=== PATIENT | male | born 1980 | race Caucasian/White ===

== ENCOUNTER 2023-03-23 15:57 | Emergency (ER) | payer OTHER, SELFPAY ==
[2023-03-23 16:02] VITALS: BP 144/100; PULSE 102; RESP 14; TEMP 37.1; O2SAT 97; BMI 24.3
--- NOTE | 2023-03-23 16:22 | ED.GENADUL1 ---
Documented by User: Marsha Collins 03/23/23 17:58 HPI - General Adult General Chief complaint: Eye Problems Stated complaint: VISION Time Seen by Provider: 03/23/23 16:03 Source: patient Mode of arrival: walk-in History of Present Illness HPI narrative: 42 year old male presents to the ED for blurry vision, increased thirst, frequent urination, increased hunger. Onset was 2 weeks ago. Denies fever, chills, injury, NAQVI, dizziness. Denies CP, SOB, abd pain, N/V/D, dysuria. Reports family hx DM which is his concern today. He does not wear glasses or contacts. Denies pain at this time. Related Data Home Medications Medication Instructions Recorded Confirmed No Known Home Medications 03/23/23 03/23/23 Allergies Allergy/AdvReac Type Severity Reaction Status Date / Time No Known Drug Allergies Allergy Verified 03/23/23 16:08 Review of Systems ROS Constitutional Denies: fever or chills Eyes Reports: blurry vision; Denies: blind spots, light sensitivity, eye discomfort or eye discharge Ears, nose, mouth, and throat Denies: throat pain or neck pain Cardiovascular Denies: chest pain Respiratory Denies: shortness of breath or cough Gastrointestinal Denies: abdominal pain, nausea, vomiting or diarrhea Genitourinary Reports: urinary frequency and urinary urgency; Denies: painful urination or blood in urine Musculoskeletal Denies: back pain Integumentary/Breast Denies: rash Neurological Denies: headache, weakness in extremities or dizziness Endocrine Reports: excessive urination, excessive thirst and fatigue PFSH PFSH Social History Smoking status: Current every day smoker Exam Constitutional Vital Signs, click to edit/add: Last Vital Signs Temp 98.7 F 03/23/23 16:02 Pulse 102 H 03/23/23 16:02 Resp 14 03/23/23 16:02 BP 144/100 H 03/23/23 16:02 Pulse Ox 97 03/23/23 16:02 O2 Del Method Room Air 03/23/23 16:02 Common normals: no apparent distress and oriented x3 General appearance: cooperative; not ill appearing [facility] Common normals: normocephalic Nose: external nose normal Mouth: lip normal Eye Common normals: PERRL, EOMs intact bilaterally, conjunctivae normal, no scleral icterus and normal visual arrington by confrontation General eye: normal appearance of both eyes Neck & C-Spine Common normals: supple Chest Chest: symmetrical chest wall rise Respiratory Common normals: normal respiratory effort Effort & inspection: symmetric chest movement Cardio Common normals: regular rhythm Rate: tachycardic GI Common normals: soft to palpation and non-tender Neuro Common normals: oriented x3, CN's II-XII intact bilaterally, moves all extremities and no focal motor deficits Sensorium/orientation: alert Speech: speech normal Gait (neuro): normal gait Psych Mood and affect: anxious Course Vital Signs Vital signs: Vital Signs Temperature 98.7 F 03/23/23 16:02 Pulse Rate 102 H 03/23/23 16:02 Respiratory Rate 14 03/23/23 16:02 Blood Pressure 144/100 H 03/23/23 16:02 Pulse Oximetry 97 03/23/23 16:02 Oxygen Delivery Method Room Air 03/23/23 16:02 Temperature 98.7 F 03/23/23 16:02 Pulse Rate 102 H 03/23/23 16:02 Respiratory Rate 14 03/23/23 16:02 Blood Pressure 144/100 H 03/23/23 16:02 Pulse Oximetry 97 03/23/23 16:02 Oxygen Delivery Method Room Air 03/23/23 16:02 Medical Decision Making MDM Narrative Medical decision making narrative: The patient presented with blurred vision, increased thirst, increased hunger. Onset was 2 weeks ago. Here his blood sugar was 271. He did report he has not eaten or had anything to drink today, however, he does have a sugar-free Gatorade with him here. Urinalysis showed 40+ ketones and was positive for glucose. CT scan was negative for acute findings. Findings were discussed with the patient. He was encouraged to follow up with a primary care provider and an ripper operator for a recheck, further evaluation and treatment. He was provided with referral information for follow up. Medical Records Medical records reviewed: Yes I reviewed the patient's medical records Lab Data Lab results reviewed: Yes I reviewed the patient's lab results Labs: Lab Results 03/23/23 03/23/23 Range/Units 16:33 16:35 WBC 8.7 (4.0-11.0) 10^3/uL RBC 5.15 (4.70-6.10) 10^6/uL Hgb 15.6 (14.0-18.0) g/dL Hct 44.1 (42.0-54.0) % MCV 85.6 (80.0-94.0) fL MCH 30.3 (25.9-34.0) pg MCHC 35.4 H (29.9-35.2) g/dL RDW 12.8 (11.0-15.0) % Plt Count 255 (150-450) 10^3/uL MPV 10.4 (9.5-13.5) fL Neut % (Auto) 64.9 (43.0-75.0) % Lymph % (Auto) 26.5 (20.5-60.0) % [place] % (Auto) 6.3 (1.7-12.0) % Eos % (Auto) 1.0 (0.9-7.0) % Baso % (Auto) 1.1 (0.2-2.0) % Neut # (Auto) 5.7 (1.4-6.5) 10^3/uL Lymph # (Auto) 2.3 (1.2-3.8) 10^3/uL [place] # (Auto) 0.6 (0.3-0.8) 10^3/uL Eos # (Auto) 0.1 (0.0-0.7) 10^3/uL Baso # (Auto) 0.1 (0.0-0.1) 10^3/uL Abs Immat Gran (auto) 0.02 (0.00-0.03) 10^3/uL Imm/Tot Granulo (auto) 0.2 (0.0-0.5) % Sodium 134 L (136-145) mmol/L Potassium 4.0 (3.5-5.1) mmol/L Chloride 99 (98-107) mmol/L Carbon Dioxide 26.3 (21.0-32.0) mmol/L Anion Gap 12.7 BUN 20.0 H (7.0-18.0) mg/dL Creatinine 0.88 (0.70-1.30) mg/dL Est GFR ( Amer) >60 (>=60) Est GFR (Non-Af Amer) >60 (>=60) BUN/Creatinine Ratio 22.7 Glucose 271 H (74-106) mg/dL Calcium 9.1 (8.5-10.1) mg/dL Total Bilirubin 0.5 (0.2-1.0) mg/dL AST <5 L (15-37) U/L ALT 31 (16-63) U/L Alkaline Phosphatase 95 (46-116) U/L Total Protein 7.6 (6.4-8.2) g/dL Albumin 4.2 (3.4-5.0) g/dL Globulin 3.4 g/dL Albumin/Globulin Ratio 1.2 Lipase 23.0 (16.0-77.0) U/L Urine Color Yellow (YELLOW) Urine Clarity Clear (CLEAR) Urine pH 5.5 (5.0-9.0) Ur Specific [place] >=1.030 A (1.005-1.025) Urine Protein Trace (NEG/TRACE) mg/dL Urine Glucose (UA) 500 A (NEGATIVE) mg/dL Urine Ketones 40 A (NEGATIVE) mg/dL Urine Occult Blood Negative (NEGATIVE) Urine Nitrite Negative (NEGATIVE) Urine Bilirubin Small A (NEGATIVE) Urine Urobilinogen 0.2 (0.2-1.0) EU/dL Ur Leukocyte Esterase Negative (NEGATIVE) Imaging Data CT scan - head: Attestation: I have reviewed the pertinent imaging results. Radiologist's impression: Procedure: CT head/brain wo con EXAMINATION: CT head/brain wo con HISTORY: HAs, blurred vision COMPARISON: None. TECHNIQUE: CT scan of the head was performed without IV contrast. CT dose reduction technique was used, including Automated Exposure Control. FINDINGS: There are no extra-axial fluid collections. There is no mass effect or midline shift. The cerebral ventricles and sulci are normal. The brain demonstrates normal attenuation. Basal cisterns are patent. Bilateral orbits, paranasal sinuses and mastoid air cells are patent. No skull base fracture. CT/CT head/brain wo con IMPRESSION: No acute intracranial process. Brain MRI is recommended if clinically warranted. Electronically authenticated by: JOAN CODY Date: 03/23/2023 17:30 Discharge Plan Discharge Chief Complaint: Eye Problems Clinical Impression: Blurred vision, Acute hyperglycemia Patient Disposition: Home, Self-Care Time of Disposition Decision: 17:52 Prescriptions / Home Meds: No Action No Known Home Medications Instructions: Blurred Vision (ED), Diabetic Hyperglycemia (ED), Mediterranean Diet (DC) Stand Alone Forms: Portal Instructions Referrals: MASOOD HERRERA APRN [Physician] - As soon as possible GODFREY WALTERS [Physician] - As soon as possible GODFREY MILLER [Physician] - As soon as possible Documented by User: Santi Rowell 03/23/23 18:14 HPI - General Adult General Chief complaint: Eye Problems Stated complaint: VISION Time Seen by Provider: 03/23/23 16:03 Related Data Home Medications Medication Instructions Recorded Confirmed No Known Home Medications 03/23/23 03/23/23 Allergies Allergy/AdvReac Type Severity Reaction Status Date / Time No Known Drug Allergies Allergy Verified 03/23/23 16:08 PFSH PFSH Social History Smoking status: Current every day smoker Exam Constitutional Vital Signs, click to edit/add: Last Vital Signs Temp 98.7 F 03/23/23 16:02 Pulse 102 H 03/23/23 16:02 Resp 14 03/23/23 16:02 BP 144/100 H 03/23/23 16:02 Pulse Ox 97 03/23/23 16:02 O2 Del Method Room Air 03/23/23 16:02 Course Vital Signs Vital signs: Vital Signs Temperature 98.7 F 03/23/23 16:02 Pulse Rate 102 H 03/23/23 16:02 Respiratory Rate 14 03/23/23 16:02 Blood Pressure 144/100 H 03/23/23 16:02 Pulse Oximetry 97 03/23/23 16:02 Oxygen Delivery Method Room Air 03/23/23 16:02 Temperature 98.7 F 03/23/23 16:02 Pulse Rate 102 H 03/23/23 16:02 Respiratory Rate 14 03/23/23 16:02 Blood Pressure 144/100 H 03/23/23 16:02 Pulse Oximetry 97 03/23/23 16:02 Oxygen Delivery Method Room Air 03/23/23 16:02 Medical Decision Making MDM Narrative Medical decision making narrative: The patient presented with blurred vision, increased thirst, increased hunger. Onset was 2 weeks ago. Here his blood sugar was 271. He did report he has not eaten or had anything to drink today, however, he does have a sugar-free Gatorade with him here. Urinalysis showed 40+ ketones and was positive for glucose. CT scan was negative for acute findings. Findings were discussed with the patient. He was encouraged to follow up with a primary care provider and an ripper operator for a recheck, further evaluation and treatment. He was provided with referral information for follow up. Attending note - I met and talked with the patient. We discussed his test results. 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 His glucose is elevated in our ED but he needs additional tests and appropriate folow up before being started on diabetic meds. He was given referral info for [facility] in [place] and for two local optometrists. - DO Earl Lab Data Labs: Lab Results 03/23/23 03/23/23 Range/Units 16:33 16:35 WBC 8.7 (4.0-11.0) 10^3/uL RBC 5.15 (4.70-6.10) 10^6/uL Hgb 15.6 (14.0-18.0) g/dL Hct 44.1 (42.0-54.0) % MCV 85.6 (80.0-94.0) fL MCH 30.3 (25.9-34.0) pg MCHC 35.4 H (29.9-35.2) g/dL RDW 12.8 (11.0-15.0) % Plt Count 255 (150-450) 10^3/uL MPV 10.4 (9.5-13.5) fL Neut % (Auto) 64.9 (43.0-75.0) % Lymph % (Auto) 26.5 (20.5-60.0) % [place] % (Auto) 6.3 (1.7-12.0) % Eos % (Auto) 1.0 (0.9-7.0) % Baso % (Auto) 1.1 (0.2-2.0) % Neut # (Auto) 5.7 (1.4-6.5) 10^3/uL Lymph # (Auto) 2.3 (1.2-3.8) 10^3/uL [place] # (Auto) 0.6 (0.3-0.8) 10^3/uL Eos # (Auto) 0.1 (0.0-0.7) 10^3/uL Baso # (Auto) 0.1 (0.0-0.1) 10^3/uL Abs Immat Gran (auto) 0.02 (0.00-0.03) 10^3/uL Imm/Tot Granulo (auto) 0.2 (0.0-0.5) % Sodium 134 L (136-145) mmol/L Potassium 4.0 (3.5-5.1) mmol/L Chloride 99 (98-107) mmol/L Carbon Dioxide 26.3 (21.0-32.0) mmol/L Anion Gap 12.7 BUN 20.0 H (7.0-18.0) mg/dL Creatinine 0.88 (0.70-1.30) mg/dL Est GFR ( Amer) >60 (>=60) Est GFR (Non-Af Amer) >60 (>=60) BUN/Creatinine Ratio 22.7 Glucose 271 H (74-106) mg/dL Calcium 9.1 (8.5-10.1) mg/dL Total Bilirubin 0.5 (0.2-1.0) mg/dL AST <5 L (15-37) U/L ALT 31 (16-63) U/L Alkaline Phosphatase 95 (46-116) U/L Total Protein 7.6 (6.4-8.2) g/dL Albumin 4.2 (3.4-5.0) g/dL Globulin 3.4 g/dL Albumin/Globulin Ratio 1.2 Lipase 23.0 (16.0-77.0) U/L Urine Color Yellow (YELLOW) Urine Clarity Clear (CLEAR) Urine pH 5.5 (5.0-9.0) Ur Specific [place] >=1.030 A (1.005-1.025) Urine Protein Trace (NEG/TRACE) mg/dL Urine Glucose (UA) 500 A (NEGATIVE) mg/dL Urine Ketones 40 A (NEGATIVE) mg/dL Urine Occult Blood Negative (NEGATIVE) Urine Nitrite Negative (NEGATIVE) Urine Bilirubin Small A (NEGATIVE) Urine Urobilinogen 0.2 (0.2-1.0) EU/dL Ur Leukocyte Esterase Negative (NEGATIVE) Discharge Plan Discharge Chief Complaint: Eye Problems Clinical Impression: Blurred vision, Acute hyperglycemia Patient Disposition: Home, Self-Care Time of Disposition Decision: 17:52 Prescriptions / Home Meds: No Action No Known Home Medications Instructions: Blurred Vision (ED), Diabetic Hyperglycemia (ED), Mediterranean Diet (DC) Stand Alone Forms: Portal Instructions Referrals: MASOOD HERRERA APRN [Physician] - As soon as possible GODFREY WALTERS [Physician] - As soon as possible GODFREY MILLER [Physician] - As soon as possible
[2023-03-23 16:41] LABS: Basophils Absolute Auto 0.1 10^3/uL (0.0-0.1); Basophils Percent Auto 1.1 % (0.2-2.0); Eosinophils Absolute Auto 0.1 10^3/uL (0.0-0.7); Hematocrit 44.1 % (42.0-54.0); Hemoglobin 15.6 g/dL (14.0-18.0); Immature Granulocytes Abs Auto 0.02 10^3/uL (0.00-0.03); Immature Granulocytes Pct Auto 0.2 % (0.0-0.5); Lymphocytes Absolute Auto 2.3 10^3/uL (1.2-3.8); Lymphocytes Percent Auto 26.5 % (20.5-60.0); Mean Corpuscular HGB Conc 35.4 g/dL (29.9-35.2); Mean Corpuscular Hemoglobin 30.3 pg (25.9-34.0); Mean Corpuscular Volume 85.6 fL (80.0-94.0); Mean Platelet Volume 10.4 fL (9.5-13.5); Monocytes Absolute Auto 0.6 10^3/uL (0.3-0.8); Monocytes Percent Auto 6.3 % (1.7-12.0); Neutrophils Absolute Auto 5.7 10^3/uL (1.4-6.5); Neutrophils Percent Auto 64.9 % (43.0-75.0); Platelet Count 255 10^3/uL (150-450); Red Blood Count 5.15 10^6/uL (4.70-6.10); Red Cell Distribution Width 12.8 % (11.0-15.0); White Blood Count 8.7 10^3/uL (4.0-11.0)
[2023-03-23 16:43] LABS: Bilirubin Urine SMALL (NEGATIVE); Blood Urine NEGATIVE (NEGATIVE); Clarity Urine CLEAR (CLEAR); Color Urine YELLOW (YELLOW); Glucose Urine UA 500 mg/dL (NEGATIVE); Ketones Urine 40 mg/dL (NEGATIVE); Leukocyte Esterase Urine NEGATIVE (NEGATIVE); Nitrite Urine NEGATIVE (NEGATIVE); Protein Urine TRACE mg/dL (NEG/TRACE); Specific Gravity Urine >=1.030 (1.005-1.025); Urine Microscopic Indicated NO; Urobilinogen Urine 0.2 EU/dL (0.2-1.0); pH Urine 5.5 (5.0-9.0)
--- NOTE | 2023-03-23 16:43 | CT_ITS ---
The [address] [address] Patient Name: ZHANG MEHTA MRN: [id number] date: 1980 Sex: M Assigned Patient Location: ER Current Patient Location: ER Accession/Order Number: [id number] Exam Date: 03/23/2023 17:04 Report Date: 03/23/2023 17:30 At the request of: JENNIFER WILKINS Procedure: CT head/brain wo con EXAMINATION: CT head/brain wo con HISTORY: HAs, blurred vision COMPARISON: None. TECHNIQUE: CT scan of the head was performed without IV contrast. CT dose reduction technique was used, including Automated Exposure Control. FINDINGS: There are no extra-axial fluid collections. There is no mass effect or midline shift. The cerebral ventricles and sulci are normal. The brain demonstrates normal attenuation. Basal cisterns are patent. Bilateral orbits, paranasal sinuses and mastoid air cells are patent. No skull base fracture. CT/CT head/brain wo con IMPRESSION: No acute intracranial process. Brain MRI is recommended if clinically warranted. Electronically authenticated by: JOAN CODY Date: 03/23/2023 17:30
[2023-03-23] MEDS: 0.9 % SODIUM CHLORIDE 1,000 ML 1000 ML IV (16:53)
[2023-03-23 16:56] LABS: Alanine Aminotransferase 31 U/L (16-63); Albumin Globulin Ratio 1.2; Albumin Level 4.2 g/dL (3.4-5.0); Alkaline Phosphatase 95 U/L (46-116); Anion Gap 12.7; Aspartate Amino Transferase <5 U/L (15-37); BUN Creatinine Ratio 22.7; Bilirubin Total 0.5 mg/dL (0.2-1.0); Calcium 9.1 mg/dL (8.5-10.1); Carbon Dioxide 26.3 mmol/L (21.0-32.0); Chloride 99 mmol/L (98-107); Estimated GFR (African America >60 (>=60); Estimated GFR (Non-African Ame >60 (>=60); Globulin 3.4 g/dL; Glucose 271 mg/dL (74-106); Sodium 134 mmol/L (136-145); Total Protein 7.6 g/dL (6.4-8.2)
[2023-03-23 18:09] VITALS: BP 148/86; PULSE 86; RESP 16; O2SAT 98
== END 2023-03-23 18:10 | disposition home or self-care (01) ==
PROVIDERS: Nurse Practitioner Family; Emergency Provider Emergency Medicine
DX: R73.9 Hyperglycemia, unspecified (principal); H53.8 Other visual disturbances; F17.210 Nicotine dependence, cigarettes, uncomplicated
CPT/HCPCS: 36415; 70450; 80053; 81003; 83690; 85025; 99285

== ENCOUNTER 2023-07-21 19:59 | Emergency (ER) | payer OTHER, SELFPAY ==
--- OUTSIDE RECORDS SUMMARY | 2023-07-21 20:16 | XMS_ITS | CCD ---
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 Name Role Phone MD Deon Robles Attending Unavailable Allergies Allergy Classification Reported Allergen(s) Allergy Type Date of Onset Reaction(s) Facility (1 source) No Known Medication Allergies; Translations: [No Known Medication Allergies] Propensity to adverse reactions (disorder) [facility] Repository Problems Problem Classification Problem Date Documented Da te Episodic/Chronic Other connective tissue disease (1 source) Pain in left arm; Translations: [Pain in left arm] Onset: 02-15-2017 Episodic Pneumonia (1 source) Pneumonia, unspecified organism; Translations: [Pneumonia, unspecified organism] Onset: 02-15-2017 Episodic Results Test Name Value Interpretation Reference Range Facility Coding Summaryon 04-17-2021 Coding Summary HTMLBase 64 VibzsfbjEEe4pSh+PGhlYWQ+PE1F LAWlL20syINaeI0MF8rQXM1HPDXD AQLTQD0GPT7jmCK0CVsrV2CymhLf YfqpxOJiSY05QAw8EJG7uCmbBVyp zT4wkVRyT5w5LeIkON19aU31LSwd FVHmWfT7NsFlrvtfaQSy W5kdViMznJUjVoi+PHRhYmxlIHdp AMWwDExmZHWvHiKkrHrvIS9uTc3d ZGVyLWNvbGxhcHNlOiBj k7zyRCPrBUjqPN8rtPhiU5RgmKC6 MSLqq1q2Qc53yXO+HDWxMYL8lRdo ZGpot348RlJhb0uvDUT2 eLLlMQmuOTM4M54bi8I6XOVfKPKe SNA8gCN2rS7bkUvctckkI0HlnDTn UxF1NZK0ySXxvX5tqFbg jygcaH2lQcp+H44UZL5FQQFAVW3C Rlx2X8OkWmdfpRU+PN72FHItGV23 zQGtqBFzd9srbEi5UbUl KTZuRBC5wKxtSFjwe1BoUMCeG42p kKUsn8L9XAUiwPvbbABiKqJqjRA0 mT2gNGxujjxuy9awvvky Fzsbb4tizi27vU56Z33vIPjpUJAy PXY0HUBbGFYxtQjmfp4ryI3gCo6+ KBzmz6pup6lbmQc3HuCl XTElleGdkEwtMEP4t4IyFk54D8Df jWdzb5MdPld3dm45aZNxq1M8xKW0 LUixZKYamL5yFKvjSjV2 CLYkNqHotM25dWCuFYrfEe9nwWez vXtqGT7sXPNspgfuESSduN0fDDYt fMEizNymVL9nUPRozvol z925YwKaHHL7UNNntCSzN5XpqJ7j ZvXbRVQvWIEkR3HwbNZgWBcxG647 MQcuPdZ1NCHitjKyT6Xt WYIwhDvmUvR5n1F5Hv8Hw0Ldzdib PNW6PPmnKYSoDbL9ZtGtFbV2L6Fb Frc6UIXyqGtcMJ9vV2Gx CSOlfqfxrxigpAD5XAPcVPJheN79 yNGeLSqtVj9ce5X8g928POLdWMKz uY65Po7saOoaAPEtnFSP yR3fuzdma8bbaqrqXeHtEZVaDDi8 NFd4XBBpyYvjXgGaLBT8PeZ0GZS5 vWSwpS3wdFnnnaywvF3v Oyc+D84gcD7eTCG2CWA8dlkpYCOw tmAxDI05WT05V4TpXrvnmTUgvJO+ QGJmjuYirHdhAE8kSrIr r6jnx2VcTIfrE3RmZDOfGShaLao6 VBYpWFU5hCP1hJ9wBKXlFRimk8G4 yKL3X7LmgyOibk3pv8jw SJRxAOiqE84inJFfz8X5EZJnsQS6 VNEadFqjUzPniP13Prz+PGNvbGdy i9EcRhlci5tij1vdeUg6 VfQbUQMuzuAxuZuuXNV2l4OmQm51 U53tZCefOHWmOWDiKWGyFZZzfReh ns4ryH6mJj3+PGNvbCB3 lQL1xD2bWMTwCnY4ETivT273ItAu aMOdDyiow4nja5tgoZc7WrKnFVVn siGwdAjrNUO3d6NyMg88 M26cQDmlDJYpUURiDAFsQBRfcQzx ln2fkG3iHj5+IL1bo2scqv20zH48 dHI+CQQoXJO5uPfkMScx POPelY5gKPhjZzR1TUIgYcKxdM34 cYObSQusWq7exSmvcOomFM4oJNCp tqoux105YfNvb2cxBHAg cXRkDCowWKH4B65tm9Z2BTQbGQDk GLF3rDR8iW2vfOcprroghHHenOog duXcjNqvCCmdSLllY244 IHRvcDsnPlBhdGllbnQgTmFtZTo8 Z0SiDmq0DSRkqStvPV9pmDShFUzt Jo3hcRclqEpfDZ8wULHx hfnlg257ZlBhr4uzEVLbxDFuCLub MRR2D49ll2I8QWPlRCDuVFS0aPS2 sZ0oxBxivozxxFNfuUro ocYhiSwdHMhwGTeaE732XTJimRuw BtAodfHiGBLdbLU4EN76TB51mFKi u8K1rMI1F1YbWQAblvqp jfskgSX5LSJrIQAieE98Qd0wmWid Yp5eULQxNUJ1RSOaoCRxL6PpuU4t FyZwNLVsCVRnG5VdoEGe RNtvV360FQloQtZ5QNAklpJhA1Ux UAKmfYkuUwI5w5J6Sa7EX9O9OR27 KG77vMZfn6J1nSE2N0Fo BZHymefxjypqdRR1PJDkWHNfdI40 Eo5mxZsfMb2iRSDgPFE7ZOGnfOXj O8IwgL3iXpKiSANhDELk G7AlnEVyZWwrG249AMrjHlH6QOZz dbVfJ5FdCPQvmMkjBrI7b5L2Vs7J CEg1MB46VU87iBJzh6N2 mFQ3M0WmQUYggtkqotucsPO0VAEv ZCMrpU25Ze9vuIttLe8jVDVaTKW9 DQFioVUbO8TuoZ5jSzOt NUFwRANoS7ZghHAdCPltM551MXwg JiV4PQFikeMjM6MfIHXspZqwFwO8 l2L3Av1YLWFaMA35RPO3 nDH5FY51UD30P2VwYmdgpKJgmWR+ PHRhYmxlIHdpZHRoPScxMDAlJyBz rLkdWG6iQh2fRSDxNTUx aAkoxCRqXsOaa0bkRQSzGIotXL8w iDylV7FuiPP5WLXrs6r5Ka75I64e O0AtxNK+TCHgaAN2yAK4 rN2bTbWoCvE7OCziJ273ZdPveZIi Exokv8pha0wnvQl1QiO2PQOdabLl dPafSFL2n4OvRk24Y52o AIvuWGZaYVFuVNGrAJZcnYdnur9r oZ5vEz8+LYLhaKH1cEG5xU5qKaSt SzT5QNqzT498IxDmrEMs Mvswe1eyt9yzoYz4HxAuIBWrceAb oNayAUD3v5JoZv94A7BieNxeo2Pk Jlh9bn14dPWnt4D1rMQ2 I0CwSZYdbeciuHXbmJljVH4xIITq uvrzFUHubY9uDYCpN8n5QuCqWcT8 ATupH0GyvhM9RNZwaVIu HAgzVYG3C05fr1S4MVRfVMGcDAW6 nZJ6nC0zlYiusnzwbDUdkWlgikIu fExwKFatRPbmW901NGUa sDhqGPLzlG4bCOVtuXTlvXmpES6i VRStacbeBleZHEhTQceiCxRIEH4Q RDwvdGQ+EHXpCAF2uOzy CLoxBUQxgY1qCBOjH2h4DfPfGyN3 YYvwA5FgARJloxaqOj21vE0wAvPz BoJ2OGhtQ3WfhuE4XSIn rDAqOLpeQIA3T93vr1D7HRYvSKWu HVX6aAQ3sE0pyYpddmagmCAtzPvh xcPuiCobKMaeDNxmR397 UVLluWckYgCbYjChYnG8HVH7P7Es Qam7ABYhcPdyNP6icZIvPBilAx4c xQiupKznPS3aRIBmwxnw QNXfpH9vIEGlcBTgeYcwMH4aDXVt mulxd768PzRbMAI6TBJqtIZmM5Wi eN4mHiAjEFWiIRMfD4Os wMNjIGmxV444ULwuPrQ6OULgdrAj U1XoYXOgjBgrXdD6l9S4Yp5dUXNB ZWFyczwvdGQ+PHRkIHN0 nKanUZskNIJmeU1yDFArM0e9XbBj IiG5HMmqK8HtEANtljseVk44gC1u QtCqDvB2MLrcF7MtzgM1 OZBccBUcUJmsNUV2P31kg8C6NJXv KVZvMUC0bNX3iX7dlJonwxcqsNFi dDsgdmVydGljYWwtYWxp Z190CNKxfSpdDz7YUQK5K8CoKhf8 RIEfxFxqUJ2zcUPzGQtbBq1bqWlk sNvcUS3mCANquhfpUBZe qG1dBAVbcMCisFyaBG3dSORzcjht t570WiDyJWB0SKSmfCNjK4LzvY0z DaTwUKNxNYOhI4EdmUSc OSmcY382UVwwPcZ5RURtoxMyS3Io ABQyuYzaYvE3g5T0Lt2FADwznOG+ JO53qs35O4SdUohqZta0 LVTkXKE6gAE6cL4mJRQiAHgds6J2 bYL1T2GrkaRxue6gv9kjRSZtBDqt G76pdWSqh5B9USKxjLS1 YUNoeEveJkNjjH31Sjr+PGNvbGdy i1OxSwmmy2qeu1tujTs3QkOfUHCk plQzjBdrDXA8i8JeZh31 V12dCYkqQEYhYHZfBHXaEBYqdVpa hq2fcO1xBi2+QKBvuGS0xZF0pF9r VpXlIvP3NLckI868UlNf sYVcWwnfe1jhp3uqbEe8StPjNTLs qhEleOvdOUS3g0LsUo41G2UjpZwy j8VeDuc0zg41rBFzj5Y7 wVL9W5ZiMHQmzqmijAThhExwVL9d MDBbwdruKTBayC7hLXXqY9h8TxIc QvN3FNvkP6GodvI8PMNe uNAmAPJwvPDDaF7vaskqp9vxmqgw YnUyOGLrLGa5GUh0PGGugTzsJbKi GRX1XhM7OKN1nUFaiB0e sKlpbjjtqR1pZbj+MMd2o2dpjXOe TQ9qrJO3FI28TZ16eAQgg1W6kUR4 C8YdBMNyubojwmuuzEM7 VVSpYFSdyW98Pi6yiYgzSx2qRTGe HZU1DGMgbEIrB9QhkS1iOkOdDPTk GWWyS2YvwFAcQEbfW551 MJnkMnZ6LUOhogQvE6PiODVskApc MwT1l0I8Ta1PYL45XR90RD46ePOv g4M0iRS1W8UoPQXrmzob gjkxdRV3PWHjUFQocW12Uq2rkDlu Fe6fXXLoNHG1FQYqeSBwC3NfxM9w CrWkMZWsXKEaU7EpbYXm WFgkH201NVkfQuU2TQPpfbLcK0Ia QYXjeHlnPkD8u0N1Fm8KYk24DT12 OR55kMGgw3C8iMQ8Z1Zb ONGryduahyotfNZ7RDVsHIAwkT02 Mk1kpHnhVd8lBOAhWDC4JGMifTJg U2RtuB6mWxNnRACzZSGv B9IwjWEhTYnaW106BVvfCjP3XRDr hcTuU6IfLFHmoBmzRvN7m3K3Mx4M UEzyfxz9F0RvQquztKB+ XM90IHNdBF22fFZxuAHgp4jjjPi0 OmRwRFNqCZI3fIkxNWjnd4ViZBFu T38qkEYpp1W3ABKtjDia cHN (more content not included)... [facility] Coding Summary HTMLBase 64 IkxkemtyTOy1tXc+PGhlYWQ+PE1F NSMaY06zqXHpzQ6VH2hDAW4APGGE WVCPWY6LGD1qwXO2SWbxG4RldxPh TfjbmCSaWF90UKo2VZN0jRvxPDdd nA5waHQfZ4j0GuVnUU60sJ65BRtu EQOySmI9UaVhvkwlhJNj X9ymIvQkrWFeUqq+PHRhYmxlIHdp QLYzNZgrSIWoWwAbgBypSN0lFn4t ZGVyLWNvbGxhcHNlOiBj u4ekRDHbTGpsMT6lzBrpU9IzmCM3 IDUpx6a5Gs66fVG+KXHqQLQ4mJii DQhmc544CkXnn5orZCM5 hAXoKYtjRPL0G76dk2X5WIFoFCOu IBZ4kGO3yT7maNbbgyygP0GkhNSv SnA4JOZ1mEGslX8mgAee luudyT0pNkf+L40BGN5JWIMJPD9K Nbf7M7QqEtygtCS+ZH78ZIDnCV80 lUQthRZqb1imzFw9DnDb RMGyIAA8zCtrWGymu5BaFPHfB67w mBNfa2H9THSouLmlyYXaDyGrdCT9 jH9tJEeolcntd3dgkscs Ozhfm0zlzu43xX08G29oHMtpIFNu LMW3FGGeMJLtrYzwcg4riR6vDh4+ YThxc6zks2clmYa6ShAd MZPqplZdoYjgYJJ7u9FyUm96E5Zl eKlgk2EcIuo9yb04eCNwf9T0vXB6 DDvdKSJmqW5vZBiiYiY0 AZKwDiUkhB23gMLmRFzlVz6laAcn rRqqPX9lPLPxbbpnKGTtpQ9nXPFh yXFqcZbkHM6pPKFdcuht r841PkYqURQ4OZVrvYVhD4BjxN0p XvVzXKQkDBKrU1NwaEEdZGgxF286 DJxsElK3ALPgjkRyZ3Za YIRxfWczToI6h4B2Xq8Xt7Hnuahd ZEL6FFldZTAuMbR1NkHxBrZ6T9Ch Ngi9SFGdbJylEC4yL2Xr ONKjoedcjzeeyND4UZSbYOQvdI33 nIOqHOrcSq7fh0Z6d922WDBxTZRq qU08Ws0ueJmnJCCxuFPA xI3ztdnoa6innjlfMyNwOVXnXXq1 KBn3DAUstKfkRdCuSAN2ChK5NAP0 xBCifY6qsRmonwsyqD2o Oyc+K14vmQ5rEGH6ZIF1oztwRWNe ykSjTM12HH07H9HbDmhoaVYbcOW+ EZIkioEomArcDQ4oEvFe i4pbx7DgIMbqR0BlMZQzJDnyGlw1 AIQtRDT6wPI8kP7bWTOuLYyco5H3 kMW9L3GipzSpbl4ji0pe RBKgUBddS84qvULct6F1XFYniGA1 TUTqcJxmTuDwzG97Dbg+PGNvbGdy u9DcMrdum9fnl1nizEn9 TlZhIYCpuqMnzOngSFW0j6YmPe35 N08bVXuyOMMrNNHyHKQtKRWhxVea ik6fpC2yVc7+PGNvbCB3 jMT4gA0pWXRlMuB0TUtbZ920VwDx uIVfOexlb3bco6bspGm0TrHmZUUp wzZwmAtjRFC3t9XjKv52 D27vBKljMVJlEZOvOABpOFCvsCrs en1nuR1yEs2+LV0ad9iyst48dX24 dHI+YHSiSAM1lIlpXCxe ARFajN7yZMzdVhT1VERpZfGfaQ79 oKKdMSzzAt1ciDoriNvyEM1sMILt xbxlr399FvGvw4nwALPj fSRzFAsvKNU1T52is1I7FDIgRCLn KNS7gFK0dG7lzAkvghxgiJNvyThs nuGmjYqvGOolULpnW547 IHRvcDsnPlBhdGllbnQgTmFtZTo8 B3KnRpv4ZMJujVcdSM5wbAIdGJmc Ca2ywOsobRhhCN1pQSPd qtqni981PsUei5xyCFXsbXSkLOpe QYM7L14vw7I7HQJaXTSaKGG8fES0 pY5tbIpfqhuisBVreYtj ioWfeCmvGFgjNZyvF739OFInwVrv ZiHzxiFdHQJpaYR3ZY20UJ16jJFg u2S4kMK5N9MiRGKuqype clvhjSV7RNRgZSRyqJ48Nw0xpJiw Lx1sJZUtELZ7ZNCqaYFdX9UhfY7l NxXzUZKjTCOkS4GdhVFa CIcrM982SJcuCcG5WOXrydPeP2Fa PVJsjVgxKlQ4r1H0Oy9SE6W8BL77 YG09zSXug5T9mEA0O2Gl MYWddwneulklsOE3MUEgYKNgaS88 Fy8bnChbWp1fQYSpYKI5TYUomNGw S5WywS9fWkKoYLMaDOGr V4WcfJYfKFnzM903MQyoAiY8KYAm fpJbK8QmTJNnzBwbSaU2q8U4Ls9T UOa0WE92IK99tSCdc7J9 aJT0J2ThRUUldetxdhbwlVU3THMm ESRrxA33Cc4ajYrkRn9sOPEgLAO4 XGTjoXMdC3DuaC6pAcVj JYEiHLUxV0EznGPcGIdqA640SFhx LkT4SHJronAuC4BsQWEenYszWyK8 f5C8Rd1VJHKeOF72LVC6 iTL7ON09NQ13Y6VxZztaiNDsgHC+ PHRhYmxlIHdpZHRoPScxMDAlJyBz nEenOG0vAa0cBRMyJLJc jCaenCWbGoQsr7maYQWeOQjbQY7h eWwjC3GjoZS0XSHpj9a7Oo80X72m K6BzkCC+XDApeOQ7sRC1 oH0lLpLqApP4UUquJ735FxLwsLOf Ugjjp9efq1czmDa4GlD6HEGexkLv uCccOBI1l2YxTl59W76a POziHCKmJUJlGTNaBIGjmVozry2l mV0cSc0+ZQVdrBF5gGM7lV3uStGl RfA0YJejS954OmZcpBRv Etfit2yee1nojXl8JlOeJOWpohTj vPioRZX4j0SnOs65N1ShcWxip5Kb Erj8tt00lFMxl0Z1mYJ0 M7FoLAMtnaxedRXznXyaEO7kQELl rgstBLFlmZ6tNHZeU1l6GeIaZfA9 JAvmG6SlcsX0UINidZPg VNniVDR3O31xu8S5ZWBwXRNxZGJ2 yFN5tJ0xkKpfmdlplTKklNaunuXw nBnlUGuhXZdeJ626EYEp nOofOZVyiF5cZZDwdUQsmOgqXZ8r CAFsuhcjUyfAAUnWAyjkYqTDZM0A RDwvdGQ+ZAKuGWG0fXil GQrtJJUgcY1tRVRdO5x0UpNcKqY1 HLwzC0BwYUXtcpgrWx32pX9sYqXw HdH3ADfoV6HrbbM8FSNd hGVyUPdsSEY9P04lg2V1YSWdYJPx UZO1bWC5hK7rbYudbuiixNEotAdu meYsgZscQYmlYCosE244 BZQheYbnOrSvAyCxPhA1KLV9M5Xp Bjc1IICrgOloUL3yhGAuHLvjWz8e wLxxfYusLF3nYUEgljxj JBPucM0lEPLvlNIprNxsYO0qSQJr uzwgy694TdKdVOX8BTTxxBUuJ8Do sM5tNnGxHELrCCOlP6It mCKnJWmbW329MLvcOrL6VXLgzsGa R6OzZFQhkKjuXtP2k3O9Xv6rPJOC ZWFyczwvdGQ+PHRkIHN0 eDooHOmsESBydW6nAKEfZ1x7UoMl GtQ9AZfoP5BeYHYyjzowXn28sB4p BbUbEoD9GKbfE9FlveD4 KYUtgQXjYFmuPPM4X95pt0V4VNUw FCBiYSJ5pEG7nG6qeIbwzenmoDIn dDsgdmVydGljYWwtYWxp B343HESvyQuiWh6BXVR9F5IrWdr6 MHTsmMjqGW9aeLMvNUqtYm7xqRjl vOfqVH3oBNJihhkpPOTy iV5hTNIiiHOciJbsIK9dOUDlkzst u091RqJyGQK8WZCbkYKmP1ClmL8o JmRlMFOfGRPyM6NeaDSz OZdrE245PQgdOnQ0YITqqdBpQ8Ce MPVsaYyiKzC8o1U8Ip3MeYHeV5Tl D7s5J5CfMobxyLT+PC90 GJVnHB63lQNuqJVpv5qkaBc2MkJq HWFhIKZ2iUyxCQqca3IjDYRuZ85a eUAyh3W9ICAgcLykpMRo QiEjoNC2uO8qGTxsfdfbc4sfhnre Elyvf1aiyp05nB23Q93pKCpkLNCv XAHiFQAfDIIgiHnryf7v hK3tTq1+CWVtfBQ3mYE7jZ5iEiJk RiV3XHqrB414WcNpxTInBqxlq4sn m7rswDh2McFaNADzbvAi rQljFCW1d6HiOh79O85pMFteQIEo QGEjFDPnKRJdbOjvhw4qrB8gKv7+ NK6ha0qzed85cN10uAK+ YEYhCPS7hZitUDihZFTicQ9bVUdx FqW7TMQtPkKhrD53bGNtGPulWg4x vFpzuGcyLC6eWASboymg u844NjWvl7hnFFPtuSImWOmhWOG4 K79ms5Q4NMJgOTHiTMG6uMO6oZ7f bGlnbjogbGVmdDsgdmVy pXhfRZycAGxaP833LYAtySncZcTr eVRtG3vrliEXMP2wZbtysSM+PHRk ECK5lZxsDTvpDXPtuO9p XUDjR1d6WlBrOkF8SOfeQ4ZlzpL6 BMFawMEvEEPsuASBxF0dyclfl2rb ttjbMfEiSWIxPIh5FYy6 VGDxvRnyAnMcAPE5QdV4UVF3dTEm iS1euDnjteijoV3cHfn+RklOOjwv dGQ+CLGpKTI3gHdfYRmh HKYxvB7hYEMmV1t1NqXbBxW3ITuv I9EcxvU5GZDdjLBaPADgwCUNiC6a mhsom3vpibjkLoDiIJXg XHb1TNd7ADKkzFfpChXwFRY7PnD0 NRD0dKEvxH4lwImntraizF9zXlz+ TVJOOjwvdGQ+PHRkIHN0 yBwwYSbbMUUzsV7zNAQcY9v1TfRi FlL9SKmsA3GxejI4ZOUytGXpQKTp lDWBgX6paahuq3wtusba NfKfTDCpOHy9LMm5CCRauKlyPbZn LXI6YzQ9CSQ2bFYmgF8cgVwemyrv xQ2cDvz+OWX6XLR7ZR53 CF69F3PsGacytGCjgPP+PHRhYmxl BEjdKQXuMUqvORInLpWygJeuCP3b Jv6uEPHqMUFyzQldvWZf OiB (more content not included)... Normal [facility] ED Clinical Summaryon 2020 ED Clinical Summary [facility] - Emergency Department [address] [place] [address] ED Clinical Summary PERSON INFORMATION Name: SHAUNNA MEHTA Age: 40 Years Sex: MALE : 1980 MRN: Acct#: Visit Reason: SOB - Shortness of breath; POSS ASTHMA Arrival: 04/08/2021 19:18:48 Discharge: 04/08/2021 20:44:00 LOS: 000 01:26 Check In: 04/08/2021 19:18:48 Checkout:04/08/2021 20:44:00 Address: [address] [place] [id number] PCP: Provider, None PROVIDER INFORMATION Provider Role Assigned Unassigned Amadou RN, Laurie Oviedo ED Nurse 04/08/2021 19:20:41 DONALDO MARTINES ED PA 04/08/2021 19:21:30 VITALS INFORMATION Vital Sign Triage Latest Temperature Tympanic Temperature Temporal Artery Pulse Rate 116 bpm 116 bpm O2 Sat 100 % 100 % Respiratory Rate 18 br/min 18 br/min Blood Pressure /95 mmHg /95 mmHg MEDICAL INFORMATION Medications Given: Medication Dose Route predniSONE 50 mg PO albuterol (albuterol 90 mcg/inh aerosol) 360 mcg INH Allergy Information: No Known Medication Allergies PHYSICIAN DOCUMENTATION Patient: SHAUNNA MEHTA [facility]: [id number] Age: 40 years Sex: MALE : 1980 Associated Diagnoses: Asthma exacerbation; Bronchitis; Elevated blood pressure reading Author: DONALDO MARTINES Basic Information Time seen: Date & time 04/08/2021 19:22:00. History source: Patient, EMS. Arrival mode: Ambulance. History of Present Illness Patient is a 40-year-old male presenting to the emergency department with squad and police for evaluation of asthma. Patient states he has a history of asthma and COPD current smoker. He reports that he was stopped by police communications dispatcher and was placed in handcuffs secondary to work for the rest, states that he was wheezing but did not let him get to his inhaler. They called the squad and EMS gave him a breathing treatment. Patient states that after breathing treatment he is significantly improved. Does state he has a mild cough. Denies any chest pains, shortness of breath, abdominal pains, nausea vomiting, problems with bowels or bladder or fevers. States that he has not been vaccinated against Covid. Review of Systems Constitutional symptoms: No fever, Skin symptoms: No rash, Eye symptoms: Vision unchanged. ENMT symptoms: No sore throat, no nasal congestion. Respiratory symptoms: Cough, wheezing, No shortness of breath, Cardiovascular symptoms: No chest pain, no tachycardia. Gastrointestinal symptoms: No abdominal pain, no nausea, no vomiting. Genitourinary symptoms: No dysuria, Musculoskeletal symptoms: No back pain, Neurologic symptoms: No altered level of consciousness, Health Status Allergies: No active allergies have been recorded.. Past Medical/ Family/ Social History Medical history: No active or resolved past medical history items have been selected or recorded.. Social history: Social & Psychosocial Habits No Data Available . Physical Examination CONST: -Well-developed well-nourished. -Acute distress: No -Vitals: reviewed. SKIN: -Gross abnormalities: No EYES: -EOM intact, SUSIE: -Sclera conjunctiva: Unremarkable. ENT: - Normal pharynx pink and moist. NECK: -Supple ([id number]): non-tender. CARD: -Rate and rhythm: Regular -Edema: No -Calf pain: No RESP: -Respiratory effort and chest excursion with respirations: Normal -Breath sounds equal bilaterally: Clear -Wheezes: No -Rales: No - Speaking in full sentences, oxygen saturation 98% on room air BACK: -Signs of pain with movement: No ABD: -Distended: No -Deep palpation: Non-tender, soft, no guarding or rebound tenderness EXT: Gross appearance and use of all four extremities: Unremarkable NEURO: -Patient: alert -Gross CN or Focal Neuro deficits: No -Oriented to: person, place and time. -Appearance and judgment: appropriate. Medical Decision Making 40-year-old male presenting to the emergency department with squad in police for evaluation of possible asthma exacerbation. Patient received breathing treatment prior to arrival states that he is feeling significantly improved. Indicates that when he was being pulled out of his vehicle he had wheezing but they did not let him use his inhaler in his vehicle. Patient refusing Covid swab. Patient also states he is deathly afraid of needles and does not want blood work. Chest x-ray shows probable bronchitis no focal consolidation. Patient reexamined in the emergency department, heart rate is 88 bpm, oxygen saturation 100% on room air, no wheezes heard on auscultation, patient smiling and laughing speaking in full sentences appears well. Indicated the patient should continue supportive care and discussed supportive care measures with the patient. Patient will be given a prescription for prednisone along with an inhaler. Patient was given inhaler and spacer showed how to properly use this with respiratory therapy. Patient will be released into police custody told to continue with prednisone daily albu (more content not included)... [facility] ED Note - Physicianon 2020 ED Note - Physician Patient: SHAUNNA MEHTA Age: 40 years Sex: MALE : 1980 Associated Diagnoses: Asthma exacerbation; Bronchitis; Elevated blood pressure reading Author: DONALDO MARTINES Basic Information Time seen: Date & time 04/08/2021 19:22:00. History source: Patient, EMS. Arrival mode: Ambulance. History of Present Illness Patient is a 40-year-old male presenting to the emergency department with squad and police for evaluation of asthma. Patient states he has a history of asthma and COPD current smoker. He reports that he was stopped by police communications dispatcher and was placed in handcuffs secondary to work for the rest, states that he was wheezing but did not let him get to his inhaler. They called the squad and EMS gave him a breathing treatment. Patient states that after breathing treatment he is significantly improved. Does state he has a mild cough. Denies any chest pains, shortness of breath, abdominal pains, nausea vomiting, problems with bowels or bladder or fevers. States that he has not been vaccinated against Covid. Review of Systems Constitutional symptoms: No fever, Skin symptoms: No rash, Eye symptoms: Vision unchanged. ENMT symptoms: No sore throat, no nasal congestion. Respiratory symptoms: Cough, wheezing, No shortness of breath, Cardiovascular symptoms: No chest pain, no tachycardia. Gastrointestinal symptoms: No abdominal pain, no nausea, no vomiting. Genitourinary symptoms: No dysuria, Musculoskeletal symptoms: No back pain, Neurologic symptoms: No altered level of consciousness, Health Status Allergies: No active allergies have been recorded.. Past Medical/ Family/ Social History Medical history: No active or resolved past medical history items have been selected or recorded.. Social history: Social & Psychosocial Habits No Data Available . Physical Examination CONST: -Well-developed well-nourished. -Acute distress: No -Vitals: reviewed. SKIN: -Gross abnormalities: No EYES: -EOM intact, SUSIE: -Sclera conjunctiva: Unremarkable. ENT: - Normal pharynx pink and moist. NECK: -Supple ([id number]): non-tender. CARD: -Rate and rhythm: Regular -Edema: No -Calf pain: No RESP: -Respiratory effort and chest excursion with respirations: Normal -Breath sounds equal bilaterally: Clear -Wheezes: No -Rales: No - Speaking in full sentences, oxygen saturation 98% on room air BACK: -Signs of pain with movement: No ABD: -Distended: No -Deep palpation: Non-tender, soft, no guarding or rebound tenderness EXT: Gross appearance and use of all four extremities: Unremarkable NEURO: -Patient: alert -Gross CN or Focal Neuro deficits: No -Oriented to: person, place and time. -Appearance and judgment: appropriate. Medical Decision Making 40-year-old male presenting to the emergency department with squad in police for evaluation of possible asthma exacerbation. Patient received breathing treatment prior to arrival states that he is feeling significantly improved. Indicates that when he was being pulled out of his vehicle he had wheezing but they did not let him use his inhaler in his vehicle. Patient refusing Covid swab. Patient also states he is deathly afraid of needles and does not want blood work. Chest x-ray shows probable bronchitis no focal consolidation. Patient reexamined in the emergency department, heart rate is 88 bpm, oxygen saturation 100% on room air, no wheezes heard on auscultation, patient smiling and laughing speaking in full sentences appears well. Indicated the patient should continue supportive care and discussed supportive care measures with the patient. Patient will be given a prescription for prednisone along with an inhaler. Patient was given inhaler and spacer showed how to properly use this with respiratory therapy. Patient will be released into police custody told to continue with prednisone daily albuterol inhaler 1 to 2 puffs every 6 hours as needed. Reexamination/ Reevaluation Heart rate on reexamination is 88 bpm. Impression and Plan Diagnosis Asthma exacerbation ([id number] J45.901, Discharge, Medical) Bronchitis ([id number] J40, Discharge, Medical) Elevated blood pressure reading (ZGT12-DW R03.0, Discharge, Medical) Plan Condition: Stable. Disposition: Discharged: Time 04/08/2021 20:28:00, to police. Prescriptions: Launch prescriptions Laboratory: Respiratory Panel 2.1 w COVID-19 ([employer]) (Order): Nasopharyngeal Swab, 04/08/2021 19:22 EST, Stat collect, Nurse collect, No, Yes, 04/07/2021, No, No, No, Not Pharmacy: albuterol 90 mcg/inh aerosol (Order): 4 puff(s), INH, Once predniSONE (Order): 50 mg, PO, Once Radiology: XR Chest 1 View Frontal (Order): 04/08/2021 19:22 EST Stat, cough, Allow Modification Per Radiologist, Transport Mode: Wheelchair Respiratory Therapy: MDI Spacer (Order): 04/08/2021 19:23 EST MDI Instructions (Order): 04/08/2021 19:23 EST, Launch prescriptions Pharmacy: predniSONE 50 mg oral t (more content not included)... [facility] ED Note-Nursingon 04-08-2021 ED Note-Nursing Pt refused resp pane l. States he cannot tolerate it . Provider aware. [facility] ED Patient Summaryon 021 ED Patient Summary [facility] - Emergency Department [address] [place] [address] PATIENT DISCHARGE INSTRUCTIONS Patient Information Name: SHAUNNA MEHTA Age: 40 Years Date of : 1980 Reason For Visit: SOB - Shortness of breath; POSS ASTHMA Arrival Time: 04/08/2021 19:18:48 Primary Care Physician: Provider, None Attending Physician: Isac Costa MD Comment: Visit Diagnosis: Diagnoses This Visit Asthma exacerbation (J45.901) Bronchitis (J40) Elevated blood pressure reading (R03.0) SOB - Shortness of breath ([id number]) Prescription Information: If you have been given a prescription for narcotics, seek immediate medical attention if you have any difficulty breathing or any sudden status changes such as confusion and sleepiness. If you or anyone you know is experiencing suicidal thoughts, mental health, alcohol and/or drug addiction problems; contact the [facility] 20/12 Crisis Hotline -Text 4HEOA to 747996. If you received any narcotics, sedation, or any other medication that causes drowsiness for the next 24 hours, unless otherwise directed: ? Do not drive a car. ? Do not operate machinery such as power tools, lawn mowers, drills, sewing machines, or stoves ? Avoid alcoholic beverages and drugs for allergies, nerves, or sleep ? Do not make important personal or business decisions or sign any legal documents With: Address: When: LATIA DECKER [address] [place] [address] Business (1) Within 3 to 5 days Comments: Follow-up primary care provider for reevaluation next few days. Continue supportive care with plenty of rest and fluids, Tylenol for aches and pains, Vicks VapoRub for congestion and honey as a natural cough suppressant. Use inhaler as needed for any wheezing or coughing. Continue with prednisone over the next few days. Return for any worsening issues such as high spiking fevers, trouble breathing, crushing chest pains. With: Address: When: Gianna Daren [phone] EXT: [phone] Call for family Physician Within 3 to 5 days Medication Information: The exam and treatment you received today in the [facility] Emergency Department were for an urgent problem and are not intended as complete care. It is important for you to follow up with a doctor, nurse practitioner, or physician?s assistant professor of radiology for ongoing care. If your symptoms become worse or you do not improve as expected and you are unable to reach your usual health care provider, you should return to the Emergency Department, we are available 24 hours a day. For those patients who have received Radiology results, the interpretation of your X-ray as given to you by our Emergency Department physician is only a preliminary report. The Radiologist will review your films and if there is a change in the diagnosis you will be notified by phone. Please make sure you have provided a working phone number so we can reach you if necessary. In the event that you had a lab culture while you were a patient in the Emergency Department, you will be notified by phone if there is a need to change your antibiotic. Please make sure you have provided a working phone number so we can reach you if necessary. [facility] Emergency Department has provided you with a complete list of medications post discharge. Please inform your primary montessori teacher/provider of your visit and for further instruction on these medications. Any specific questions regarding your chronic medications and dosages should be discussed with your primary care physician(s) and/or pharmacist. New Medications Printed Prescriptions albuterol (Ventolin HFA 90 mcg/inh inhalation aerosol) 2 puff(s) Inhalation Every 6 hours as needed for wheezing. Refills: 0. predniSONE (predniSONE 50 mg oral tablet) 1 tab(s) Oral every day. Refills: 0. Additional medications on your home medication list not specifically addressed. Please contact the ordering physician if you have questions about these medications. albuterol Visit Information Allergies: Substance Reaction Symptoms Type Comments No Known Medication Allergies Drug Vital Signs: Vitals and Measurements this Visit (last charted value for your 04/08/2021 visit) Vital Signs This Visit Temperature Temporal: 36.7 DegC Peripheral Pulse Rate: 116 bpm Respiratory Rate: 18 br/min Systolic Blood Pressure: 150 mmHg Diastolic Blood Pressure: 95 mmHg SpO2: 100 % Oxygen Therapy: Room air Measurements This Visit Height/Length Dosin.720 cm Height/Length Estimated: 172.720 cm Weight Dosin.110 kg Weight Estimated: 77.110 kg Problems List: Problem Onset Comments No Problems found Patient Education Hypertension, Adult High blood pressure (hypertension) is when the force of blood pumping through the arteries is too strong. The arteries are the blood vessels that carry bl (more content not included)... Normal [facility] XR Chest 1 View Frontalon XR Chest 1 View Frontal EXAMINATION: XR Chest 1 View Frontal, 04/08/2021 7:52 PM EST HISTORY: cough COMPARISON: None. TECHNIQUE: Chest x-ray: One view. FINDINGS: SUPPORT APPARATUS/POST-SURGICAL CHANGES: None. CARDIOMEDIASTINAL SILHOUETTE: Normal. AIRWAYS/LUNGS: Mild central bronchial wall thickening consistent with bronchitis. No focal consolidation. PLEURAL SPACES: No pleural effusion or pneumothorax. BONES AND SOFT TISSUES: No acute abnormality. IMPRESSION: 1. Probable bronchitis. 2. No focal consolidation. Final Dictated by: Nicola Dias Dictated DT/TM: 04/08/21 8:23 Signed (Electronic Signature): Nicola Dias 04/08/21 8:24 pm Technologist: PILO Ernst [facility] ED NOTEon 02-16-2017 ED NOTE HNO ID: [id number] Author: PATEL Mtz (Ct) Service: Emergency Medicine Author Type: Clinical Ore Fielder Type: ED Notes Filed: 02/15/2017 10:09 PM Note Text: Pt to XR with steady gait Normal [facility] PROGRESSon 02-16-2017 PROGRESS HNO ID: [id number] thor: Briseida (Rt) Mervat Richardsone: RadiologyAuthor Type: TechnicianType: Progress NotesFiled: 02/15/2017 10:15 PMNote Text: Radiology Service Progress NotePATIENT NAME: Dalton RobersonRN: [id number] OF SERVICE: February 15, 2017TIME: 10:15 PMPATIENT IDENTITY VERIFICATION COMPLETED USING TWO (2) METHODS: Patientconfirmed name verbally and ID band matches..PATIENT GENDER DATA: MalePATIENT RELEVANT IMPLANT DATA REVIEWED: YesRADIOLOGY DEPARTMENT: General X-ray: Exam(s) Completed: Chest X-RayPERIPHERAL IV DATA: Not applicableSIGNED BY: CE Wrightept2016 10:15 PM Normal [facility] XR CHEST 2V FRONTAL/LATon XR CHEST 2V FRONTAL/LAT * * *Final Report* * *DATE OF EXAM: Feb 15 2017 10:14PM [id number] - XR CHEST 2V FRONTAL/LAT / REASON: SOB (shortness of breath)--Coughing * * * * Physician Interpretation * * * * EXAMINATION: CHEST RADIOGRAPH (2 VIEW FRONTAL and LATERAL)Clinical History: SOB (shortness of breath)--CoughingM: XC2_3Comparison: NoneRESULT:Lines, tubes, and devices: None.Lungs and pleura: Airspace opacities in the right middle lobe and to a lesser extent the lingula.Asymmetric appearance of the apices is likely related to confluent shadows of the first costochondral junction.No effusion or pneumothorax.Cardiomediastin al silhouette: Normal cardiomediastinal silhouette.IMPRESSION:Multif ocal areas of consolidation consistent with pneumonia. Recommend follow-up until resolution.[place] Opener: ELLIS Transcribe Date/Time: Feb 15 2017 10:28PDictated by : CAMILLE DICK MDThitung examination was interpreted and the report reviewed and electronically signed by: CAMILLE DICK MD on Feb 15 2017 10:30PM [id number] Normal [facility] ED NOTEon 02-15-2017 ED NOTE HNO ID: [id number] thor: Destini (Rn) Gwyn Guamanice: (none)Author Type: Registered NurseType: ED NotesFiled: 02/15/2017 7:16 PMNote Text:Pt presents to the ED with multiple concerns, with cough/congestion x 2months, with numbness/tingling that goes from his hands to his shoulders.Pt has been on a couple abx for the congestion and states as soon as he isoff of it, it comes back. Pt has a family hx of COPD and cardiomyopathy.He is also a 1ppd cigarette smoker. Normal [facility] ED PROV NOTEon 02-15-2017 ED PROV NOTE HNO ID: [id number] thor: Ann Lou) Aziza Allen: Emergency MedicineAuthor Type: Physician AssistantType: ED Provider NotesFiled: 02/16/2017 6:48 PMNote Text:ED Provider NotePatient Name: Dalton CoronasMRN: [id number] DATE: 02/15/17HistoryPatient presents with:Shortness of BreathChest CongestionHPI Comments: Dalton is a 36-year-old otherwise healthy male who presentsthe emergency department complaining of shortness of breath and chestcongestion. Patient states symptoms have been intermittent over the last2 months. Patient relates he is been taking some antibiotics(amoxicillin, Keflex, little yellow pill ) to help with the congestionbut as soon as he stops the antibiotics his symptoms returned. Patientrelates he has also been using multiple inhalers (a blue one and a purpleone) and nebulizers. Patient relates that he is a daily cigarette smokerwith approximately one pack per day. He denies any chest pain, abdominalpain, nausea, vomiting, diarrhea, fevers, chills, visual changes, sorethroat, ear pain, urinary frequency, urgency, dysuria. Patient relates neema also had numbness and tingling radiating down his left arm into hishands and fingertips over the last 2 months as well. Patient denies anyknown injury or trauma. Patient denies any weakness of hands or grasping. Patient states he is right-hand dominant male.History provided by: PatientLanguage sales assistants and salespersons used: NoNo past medical history on file.No past surgical history on file.No family history on file.Social HistorySocial History Main Topics- Smoking status: Not on file- Smokeless tobacco: Not on file- Alcohol use Not on file- Drug use: Not on file- Sexual activity: Not on fileALLERGIESNo Known AllergiesReview of SystemsConstitutional: Negative for chills and fever.HENT: Positive for congestion. Negative for ear pain, facial swelling,nosebleeds, postnasal drip and sore throat.Eyes: Negative for visual disturbance.Respiratory: Positive for cough, chest tightness, shortness of breath andwheezing.Cardiovascular: Positive for palpitations (occasionally, not now).Negative for chest pain and leg swelling.Gastrointestinal: Negative for abdominal pain, diarrhea, nausea andvomiting.Genitourinary: Negative for dysuria, frequency, hematuria and urgency.Musculoskeletal: Positive for myalgias and neck pain. Negative for neckstiffness.Skin: Negative for rash and wound.Neurological: Positive for numbness (left arm). Negative for weakness.Psychiatric/Behavio ral: The patient is not nervous/anxious.Physical ExamBP 132/83 Pulse 90 Temp (Src) 97.6 (Oral) Resp 18 Ht 5' 8 (1.73m) Wt 160 lb (72.6kg) SpO2 96% BMI 24.33 kg/(m2).Physical ExamConstitutional: He is oriented to person, place, and time. He appearswell-developed and well-nourished. No distress.HENT:Head: Normocephalic and atraumatic.Neck: Full passive range of motion without pain. No spinous processtenderness and no muscular tenderness present.Cardiovascular: Normal rate, regular rhythm and normal heart sounds. Examreveals no gallop and no friction rub.No murmur heard.Pulses: Radial pulses are 2+ on the right side, and 2+ on the left side.Pulmonary/Chest: Effort normal. No respiratory distress. He has wheezes(diffuse expiratory wheezes). He has no rales.Musculoskeletal: Left shoulder: He exhibits normal range of motion, no tenderness, nobony tenderness, normal pulse and normal strength. Left elbow: He exhibits normal range of motion and no swelling. Notenderness found. Left wrist: He exhibits normal range of motion, no tenderness and nobony tenderness. Cervical back: He exhibits normal range of motion, no tenderness andno bony tenderness. Left hand: He exhibits normal range of motion. Normal sensationnoted. Normal strength noted.Right shoulder: No pain with palpation over shoulder. Flexion 0-180,abduction 0-90, external rotation 0-110, internal rotation to mid back.Left shoulder: No pain with palpation over shoulder. Flexion 0-180,abduction 0-90, external rotation 0-110, internal rotation to mid back.Normal ethanol operator strength bilaterally. Negative empty can test. Negative Apleytest. Normal sensation bilaterally. 2+ radial pulses bilaterally.Neurological: He is alert and oriented to person, place, and time.Skin: Skin is warm. No rash noted. He is not diaphoretic. No erythema.Psychiatric: He has a normal mood and affect.Diagnostic TestingED Labs Ordered and Reviewed - No data to displayProceduresMedical Decision Making / ED CourseED CourseVital signs were reviewed.Triage records were reviewed.Medical records were reviewed.Nursing notes were reviewed and incorporated.36 year old male presents with sob and chest congestion x 2 months andleft arm pain and numbess. Pt is afebrile, non-toxic and hemodynamicallystable. Physical exam as above.The following medications were administered: Albuterol, Atrovent,prednisone.Radiogra phs were reviewed, chest x-ray shows multifocal areas ofconsolidation with opacities of right middle lobe and lingula. Noeffusion or pneumothorax. Normal cardiomediastinal silhouette.Patient states he feels better following breathing treatments. Patientalso localizes that he does not want to be admitted to the hospital andwould like to be discharged home. Advised patient that close follow-up isnecessary and he expresses understanding. Advised pt that left shoulderpain sound radicular in nature and may need EMG testing as outpt.Pt discharged home d/t good condition. Please take Tylenol 650 mg every 6hours as needed for fever. Alternate with ibuprofen 600 mg every 6 hours.Take Levaquin 750 mg 1 tablet daily for 7 days. Be sure to finish theentire antibiotic. Use inhaler as directed every 4 hours as needed forwheezing and shortness of breath. Take prednisone 40 mg once daily for 5days. Patient to stay well-hydrated and drink lots of fluids. Follow upwith your primary care physician rehabilitation return here to internalmedicine for further evaluation of left arm pain and numbness. Return toED if symptoms worsen or new symptoms develop.Patient expressed understanding and consented to the above plan. Nobarriers of communication were apparent and I answered all questions.Encounter Diagnosis ICD-10-CM1. Community acquired pneumonia of right lung, unspecified part of lungJ18.92. Left arm pain M79.602PlanThe Patient was DISCHARGED: Counseled patient regarding radiology resultsAND suspected diagnosis AND need for follow-up. Discharged home with verbaland written instructions. They were instructed to return as needed forpersistent or worsening symptoms or any new concerns.Given a prescription for the following medication(s): Levaquin, albuterol,prednisoneConditio n at time of disposition: stableSIGNATURE: PAULA DonaheuCKathryviky (Celeste) PATRIZIA Allen02/16/17 1848 Normal [facility] Encounters Encounter Date Encounter Type Care Provider Facility Start: 04-12-2023 End: 04-13-2023 ambulatory MD Deon Robles Facility:[facility] Start: 02-15-2017 End: 02-16-2017 Emergency department patient visit [facility] Payers Date Payer Category Payer Medicaid [id number] 1980 Unknown [id number] Clinical Note 04-08-2021 Note Date & Type Note Facility 04-08-2021 Note Education Materials Hypertension, Adult High blood pressure (hypertension) is when the force of blood pumping through the arteries is too strong. The arteries are the blood vessels that carry blood from the heart throughout the body. Hypertension forces the heart to work harder to pump blood and may cause arteries to become narrow or stiff. Untreated or uncontrolled hypertension can cause a heart attack, heart failure, a stroke, kidney disease, and other problems. A blood pressure reading consists of a higher number over a lower number. Ideally, your blood pressure should be below 120/80. The first ( top ) number is called the systolic pressure. It is a measure of the pressure in your arteries as your heart beats. The second ( bottom ) number is called the diastolic pressure. It is a measure of the pressure in your arteries as the heart relaxes. What are the causes? The exact cause of this condition is not known. There are some conditions that result in or are related to high blood pressure. What increases the risk? Some risk factors for high blood pressure are under your control. The following factors may make you more likely to develop this condition: ? Smoking. ? Having type 2 diabetes mellitus, high cholesterol, or both. ? Not getting enough exercise or physical activity. ? Being overweight. ? Having too much fat, sugar, calories, or salt (sodium) in your diet. ? Drinking too much alcohol. Some risk factors for high blood pressure may be difficult or impossible to change. Some of these factors include: ? Having chronic kidney disease. ? Having a family history of high blood pressure. ? Age. Risk increases with age. ? Race. You may be at higher risk if you are . ? Gender. Men are at higher risk than women before age 45. After age 65, women are at higher risk than men. ? Having obstructive sleep apnea. ? Stress. What are the signs or symptoms? High blood pressure may not cause symptoms. Very high blood pressure (hypertensive crisis) may cause: ? Headache. ? Anxiety. ? Shortness of breath. ? Nosebleed. ? Nausea and vomiting. ? Vision changes. ? Severe chest pain. ? Seizures. How is this diagnosed? This condition is diagnosed by measuring your blood pressure while you are seated, with your arm resting on a flat surface, your legs uncrossed, and your feet flat on the floor. The cuff of the blood pressure monitor will be placed directly against the skin of your upper arm at the level of your heart. It should be measured at least twice using the same arm. Certain conditions can cause a difference in blood pressure between your right and left arms. Certain factors can cause blood pressure readings to be lower or higher than normal for a short period of time: ? When your blood pressure is higher when you are in a health care provider's office than when you are at home, this is called white coat hypertension. Most people with this condition do not need medicines. ? When your blood pressure is higher at home than when you are in a health care provider's office, this is called masked hypertension. Most people with this condition may need medicines to control blood pressure. If you have a high blood pressure reading during one visit or you have normal blood pressure with other risk factors, you may be asked to: ? Return on a different day to have your blood pressure checked again. ? Monitor your blood pressure at home for 1 week or longer. If you are diagnosed with hypertension, you may have other blood or imaging tests to help your health care provider understand your overall risk for other conditions. How is this treated? This condition is treated by making healthy lifestyle changes, such as eating healthy foods, exercising more, and reducing your alcohol intake. Your health care provider may prescribe medicine if lifestyle changes are not enough to get your blood pressure under control, and if: ? Your systolic blood pressure is above 130. ? Your diastolic blood pressure is above 80. Your personal target blood pressure may vary depending on your medical conditions, your age, and other factors. Follow these instructions at home: Eating and drinking ? Eat a diet that is high in fiber and potassium, and low in sodium, added sugar, and fat. An example eating plan is called the DASH (Dietary Approaches to Stop Hypertension) diet. To eat this way: ? Eat plenty of fresh fruits and vegetables. Try to fill one half of your plate at each meal with fruits and vegetables. ? Eat whole grains, such as whole-wheat pasta, brown rice, or whole-grain bread. Fill about one fourth of your plate with whole grains. ? Eat or drink low-fat dairy products, such as skim milk or low-fat yogurt. ? Avoid fatty cuts of meat, processed or cured meats, and poultry with skin. Fill about one fourth of your plate with lean proteins, such as fish, chicken without skin, beans, eggs, or tofu. ? (more content not included)... [facility] Summary Purpose Family History No Family History Records FoundNo Family History Records FoundNo Family History Records Found Advance Directives No Advanced Directives Records FoundNo Advanced Directives Records FoundNo Advanced Directives Records Found Additional Source Comments (unrecognized sect ion and content) No Status Records FoundNo Status Records FoundNo Status Records Found INFORMATION SOURCE (unrecogn ized section and content) DATE CREATED AUTHOR 11/23/2017 [facility] DATE CREATED AUTHOR AUTHOR'S ORGANIZ ATION 04/19/2021 [facility] DATE CREATED AUTHOR AUTHOR'S ORGANIZ ATION 04/13/2023 [facility] FOR RECORDS PERTAINING TO PATIENTS WHO ARE OR HAVE BEEN ENROLLED IN A CHEMICAL DEPENDENCY/SUBSTANCEABUSE PROGRAM, SOME INFORMATION MAY BE OMITTED. This clinical summary was aggregated from multiple sources. Caution should be exercised in using it in the provision of clinical care. This summary normalizes information from multiple sources, and as a consequence, information in this document may materially change the coding, format and clinical context of patient data. In addition, data may be omitted in some cases. CLINICAL DECISIONS SHOULD BE BASED ON THE PRIMARY CLINICAL RECORDS. [employer] provides no warranty or guarantee of the accuracy or completeness of information in this document.
[2023-07-21 20:23] VITALS: BP 133/81; PULSE 61; RESP 18; TEMP 36.5; O2SAT 97; BMI 26.6
== END 2023-07-21 21:25 | disposition left against medical advice (07) ==
LOC: ER 20:13
PROVIDERS: Emergency Provider Internal Medicine
DX: Z53.21 Procedure and treatment not carried out due to patient leaving prior to being seen by health care provider (principal)